=== PATIENT | male | born 1985 | race Caucasian/White ===

== ENCOUNTER 2017-12-16 16:02 | Emergency (ER) | payer MEDICAID ==
--- NOTE | 2017-12-16 16:26 | ER Document Report ---
HPI - HPI Patient complains to provider of: MRSA, streak up arm Onset: Last week Pain Level: 4 Context: 32 yo male dx with MRSA left proximal forearm folliculitis by cx by [facility] now has red streak up to his axilla which hurts. also has herpes break out on penis with inquinal lymph nodes. Associated Symptoms: Other - see above Exacerbated by: Denies Relieved by: Denies Similar symptoms previously: Yes Recently seen / treated by doctor: Yes - ROS ROS below otherwise negative: Yes Systems Reviewed and Negative: Yes All other systems reviewed and negative Past Medical History - General Information source: Patient - Social History Smoking Status: Never Smoker Frequency of alcohol use: None Drug Abuse: None Lives with: Family Family History: Reviewed & Not Pertinent - Medical History Medical History: Negative Surgical Hx: Negative Vertical Provider Document - CONSTITUTIONAL Agree With Documented VS: Yes Exam Limitations: No Limitations General Appearance: No Apparent Distress - HEENT HEENT: Normocephalic - NECK Neck: Supple - RESPIRATORY Respiratory: Breath Sounds Normal, No Respiratory Distress - CARDIOVASCULAR Cardiovascular: Regular Rate, Regular Rhythm - REPRODUCTIVE Male Genitalia: Abnormal Inspection - cursted hsv lesions mid left penis with inquinal nodes - MUSCULOSKELETAL/EXTREMETIES Musculoskeletal/Extremeties: MAEW - NEURO Level of Consciousness: Awake, Alert - DERM Integumentary: Rash - right proximal folliculitis lesions that are crusted, macular pink loymphangitis to axilla Course - Re-evaluation Re-evalutation: 12/16/[address] wen, give septra 2 bid - Vital Signs Vital signs: Temp Pulse Resp BP Pulse Ox 98.5 F 74 16 131/80 H 97 12/16/17 16:17 12/16/17 16:17 12/16/17 16:17 12/16/17 16:17 12/16/17 16:17 Discharge - Discharge Clinical Impression: Herpes simplex infection of penis, left proximal forearm folliculitis, MRSA ( methicillin resistant staph aureus) culture positive Condition: Good Disposition: HOME, SELF-CARE Instructions: Folliculitis ([facility]), Genital Herpes ([facility]), Lymphadenopathy ([facility]), Trimethoprim-Sulfa ([facility]) Additional Instructions: bactroban to each nostril bid for 5 days to eradicate the MRSA valtrex for genital herpes finish the keflex and bactrim use the antibacterial soap daily in shower bactroban to the forearm lesions , small amount 3 times per day for 3 days wound check in 48 hours to er if worse Prescriptions: Sulfamethoxazole/Trimethoprim [Sulfamethoxazole-Tmp Ds Tablet] 2 each PO BID # 28 tablet Valacyclovir HCl [Valtrex] 1,000 mg PO BID #20 tablet Forms: Return to Work
[2017-12-16] MEDS ORDERED: MUPIROCIN 2% OINTMENT 22 GM TP ONE (17:32)
[2017-12-16 18:23] VITALS: BP 119/77
== END 2017-12-16 18:24 | disposition home or self-care (01) ==
LOC: ER 16:02
DX: A60.01 Herpesviral infection of penis (principal); A49.02 Methicillin resistant Staphylococcus aureus infection, unspecified site; L73.9 Follicular disorder, unspecified; R59.9 Enlarged lymph nodes, unspecified
CPT/HCPCS: 99283; J3490

== ENCOUNTER 2018-03-24 11:34 | Emergency (ER) | payer MEDICAID ==
[2018-03-24 11:40] VITALS: BP 130/76
--- NOTE | 2018-03-24 12:05 | ER Document Report ---
ED General - General Chief Complaint: Nausea/Vomiting/Diarrhea Stated Complaint: RASH ON LEFT ARM, FEET SWELLING Time Seen by Provider: 03/24/18 12:00 Mode of Arrival: Ambulatory Information source: Patient TRAVEL OUTSIDE OF THE [place] IN LAST 30 DAYS: No - HPI Patient complains to provider of: insect bites; med refill Onset: Just prior to arrival - pt with insect bites to L arm just [employer] -- with some swelling. Also wants synthroid refill - Related Data Allergies/Adverse Reactions: No Known Allergies Allergy (Verified 03/24/18 12:07) Past Medical History - Social History Smoking Status: Never Smoker Cigarette use (# per day): No Chew tobacco use (# tins/day): No Smoking Education Provided: No Family History: Reviewed & Not Pertinent Renal/ Medical History: Denies: Hx Peritoneal Dialysis Review of Systems - Review of Systems Constitutional: No symptoms reported EENT: No symptoms reported Cardiovascular: No symptoms reported Respiratory: No symptoms reported Gastrointestinal: No symptoms reported Male Genitourinary: No symptoms reported -: Yes All other systems reviewed and negative Physical Exam - Vital signs Vitals: Temp Pulse Resp BP Pulse Ox 98.0 F 72 18 130/76 H 96 03/24/18 11:39 03/24/18 11:39 03/24/18 11:39 03/24/18 11:39 03/24/18 11:39 - General General appearance: Appears well In distress: None - HEENT Pharynx: Normal Neck: Normal - Respiratory Respiratory status: No respiratory distress Breath sounds: Normal - Cardiovascular Rhythm: Regular Heart sounds: Normal auscultation - Abdominal Inspection: Normal Tenderness: Nontender - Extremities Elbow: Nontender - there are scattered erytemetous papules on L elbow ; FROM; N/ V intact Course - Re-evaluation Re-evalutation: 03/24/18 20:03 pt feels better at d/c - Vital Signs Vital signs: Temp Pulse Resp BP Pulse Ox 98.0 F 72 18 130/76 H 96 03/24/18 11:39 03/24/18 11:39 03/24/18 11:39 03/24/18 11:39 03/24/18 11:39 Discharge - Discharge Clinical Impression: Medication refill Insect bites Qualifiers: Encounter type: initial encounter Qualified Code(s): W57.XXXA - Bitten or stung by nonvenomous insect and other nonvenomous arthropods, initial encounter Condition: Stable Disposition: HOME, SELF-CARE Instructions: Acetaminophen Additional Instructions: rest, take meds as prescribed, return if worse Prescriptions: Levothyroxine Sodium [Synthroid 0.112 mg Tablet] 0.112 mg PO DAILY #30 tablet Methylprednisolone [Medrol Dosepack (4 mg/Tab) 21 Tab/Dosepak] 21 tab PO ASDIR PRN #1 dspk PRN Reason: Referrals: OSCAR LORENZO MD [ACTIVE STAFF] - Follow up as needed
== END 2018-03-24 12:07 | disposition home or self-care (01) ==
LOC: ER 11:34
DX: S40.862A Insect bite (nonvenomous) of left upper arm, initial encounter (principal); W57.XXXA Bitten or stung by nonvenomous insect and other nonvenomous arthropods, initial encounter; Z76.0 Encounter for issue of repeat prescription
CPT/HCPCS: 99281

== ENCOUNTER 2018-06-16 15:18 | Emergency (ER) | payer MEDICAID ==
--- NOTE | 2018-06-16 15:42 | ER Document Report ---
ED Medical Screen (RME) - General Chief Complaint: Wound Infection Stated Complaint: KNEE PAIN Time Seen by Provider: 06/16/18 15:39 Mode of Arrival: Ambulatory Information source: Patient TRAVEL OUTSIDE OF THE [place] 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 denies fever - Related Data Allergies/Adverse Reactions: No Known Allergies Allergy (Verified 03/24/18 12:07) Past Medical History Pulmonary Medical History: Reports: Hx Tuberculosis Renal/ Medical History: Denies: Hx Peritoneal Dialysis Physical Exam - Vital signs Vitals: Temp Pulse BP Pulse Ox 98.5 F 75 128/73 H 93 06/16/18 15:24 06/16/18 15:24 06/16/18 15:24 06/16/18 15:24 Course - Vital Signs Vital signs: Temp Pulse Resp BP Pulse Ox 98.5 F 75 128/73 H 93 06/16/18 15:24 06/16/18 15:24 06/16/18 15:24 06/16/18 15:24
[2018-06-16 16:16] LABS: ABSOLUTE EOSINOPHILS # (AUTO) 0.4 10^3/uL (0.0-0.6); ABSOLUTE LYMPHOCYTES (AUTO) 2.7 10^3/uL (0.5-4.7); ABSOLUTE MONOCYTES (AUTO) 0.8 10^3/uL (0.1-1.4); ABSOLUTE NEUT (AUTO) 5.8 10^3/uL (1.7-8.2); BASOPHILS % (AUTO) 0.4 % (0-2); EOSINOPHILS % (AUTO) 4.5 % (0-6); HEMATOCRIT 39.4 % (37.9-51.0); HEMOGLOBIN 13.5 g/dL (13.5-17.0); LYMPHOCYTES % (AUTO) 27.7 % (13-45); MEAN CORPUSCULAR HEMOGLOBIN 30.4 pg (27.0-33.4); MEAN CORPUSCULAR HGB CONC 34.3 g/dL (32.0-36.0); MEAN CORPUSCULAR VOLUME 89 fl (80-97); PLATELET COUNT 295 10^3/uL (150-450); RED BLOOD COUNT 4.44 10^6/uL (4.35-5.55); RED CELL DISTRIBUTION WIDTH 12.7 % (11.5-14.0); SEGMENTED NEUTROPHILS % (AUTO) 59.4 % (42-78); TOTAL CELLS COUNTED % (AUTO) 100 %; WHITE BLOOD COUNT 9.8 10^3/uL (4.0-10.5)
[2018-06-16 16:33] LABS: ALANINE AMINOTRANSFERASE 15 U/L (21-72); ALBUMIN 4.6 g/dL (3.5-5.0); ALKALINE PHOSPHATASE 71 U/L (38-126); ANION GAP 11 (5-19); ASPARTATE AMINO TRANSFERASE 20 U/L (17-59); BILIRUBIN,DIRECT 0.3 mg/dL (0.0-0.4); BILIRUBIN,TOTAL 0.5 mg/dL (0.2-1.3); BLOOD UREA NITROGEN 12 mg/dL (7-20); CALCIUM 9.5 mg/dL (8.4-10.2); CARBON DIOXIDE 32 mmol/L (22-30); CHLORIDE 100 mmol/L (98-107); GLUCOSE 87 mg/dL (75-110); POTASSIUM 4.6 mmol/L (3.6-5.0); SODIUM 143.2 mmol/L (137-145)
--- NOTE | 2018-06-16 17:27 | RADIOLOGY REPORT (SQ) ---
EXAM DESCRIPTION: KNEE LEFT 3 VIEWS COMPLETED DATE/TIME: 06/16/2018 5:05 pm REASON FOR STUDY: L knee pain COMPARISON: None. EXAM PARAMETERS: NUMBER OF VIEWS: Three views. TECHNIQUE: AP, lateral and oblique radiographic images acquired of the left knee. LIMITATIONS: None. FINDINGS: MINERALIZATION: Normal. BONES: No acute fracture or dislocation. No worrisome bone lesions. JOINTS: No effusion. SOFT TISSUES: Anterior soft tissue swelling. No radiopaque foreign body. OTHER: No other significant finding. IMPRESSION: NO FRACTURE. TECHNICAL DOCUMENTATION: JOB ID: [id number] [id number] 2010 [employer]- All Rights Reserved Reading location - IP/workstation name: [email or web address]
[2018-06-16] MEDS ORDERED: CLINDAMYCIN 600 MG/D5W RTU 600 MG/50 ML RTUPB IV ONE (17:47)
[2018-06-16] MEDS ORDERED: CLINDAMYCIN HCL 150 MG CAPSULE PO ONE (17:47)
--- NOTE | 2018-06-16 17:53 | ER Document Report ---
ED General - General Chief Complaint: Wound Infection Stated Complaint: KNEE PAIN Time Seen by Provider: 06/16/18 15:39 Mode of Arrival: Ambulatory TRAVEL OUTSIDE OF THE [place] IN LAST 30 DAYS: No - HPI Patient complains to provider of: Wound infection Notes: Patient coming in for wound infection of the left knee. States ongoing for 1 week. Patient states has a history of MRSA a history of small little pustules forming for which she has been given Bactroban in the past patient states he has been applying Bactroban twice a day to the wound however seems to be progressing. Patient denies any fevers chills nausea vomiting diarrhea. Patient denies any recent antibiotics in the last 2 weeks. Patient denies any specific injury however does work inspecting roofs. Patient states able to ambulate however initial motion is painful denies any other past medical history. - Related Data Allergies/Adverse Reactions: No Known Allergies Allergy (Verified 03/24/18 12:07) Past Medical History - General Information source: Patient - Social History Smoking Status: Former Smoker Chew tobacco use (# tins/day): Yes Frequency of alcohol use: None Drug Abuse: None Family History: Reviewed & Not Pertinent Patient has suicidal ideation: No Patient has homicidal ideation: No Pulmonary Medical History: Reports: Hx Tuberculosis Renal/ Medical History: Denies: Hx Peritoneal Dialysis Review of Systems - Review of Systems Constitutional: No symptoms reported EENT: No symptoms reported Cardiovascular: No symptoms reported Respiratory: No symptoms reported Gastrointestinal: No symptoms reported Genitourinary: No symptoms reported Male Genitourinary: No symptoms reported Musculoskeletal: No symptoms reported Skin: Other - Left wound infection Hematologic/Lymphatic: No symptoms reported Neurological/Psychological: No symptoms reported -: Yes All other systems reviewed and negative Physical Exam - Vital signs Vitals: Temp Pulse BP Pulse Ox 98.5 F 75 128/73 H 93 06/16/18 15:24 06/16/18 15:24 06/16/18 15:24 06/16/18 15:24 Interpretation: Normal - General General appearance: Appears well, Alert - HEENT Head: Normocephalic, Atraumatic Eyes: Normal Pupils: PERRL - Respiratory Respiratory status: No respiratory distress Chest status: Nontender Breath sounds: Normal Chest palpation: Normal - Cardiovascular Rhythm: Regular Heart sounds: Normal auscultation Murmur: No - Abdominal Inspection: Normal Distension: No distension Bowel sounds: Normal Tenderness: Nontender Organomegaly: No organomegaly - Back Back: Normal, Nontender - Extremities General upper extremity: Normal inspection, Nontender, Normal color, Normal ROM , Normal temperature General lower extremity: Tender, Normal color, Normal ROM, Normal temperature, Normal weight bearing, Other - Right knee unaffected left knee has 2 small pustules in the prepatellar area with a scant amount of drainage there is no fluctuance no expressible drainage to palpation or pressure. Erythema surrounding the proximal tibia to the area of the lateral and medial collateral ligaments there is no pain to pressure of the knee range of motion is intact. No: Normal inspection - Neurological Neuro grossly intact: Yes Cognition: Normal Orientation: AAOx4 [place] Coma Scale Eye Opening: Spontaneous [place] Coma Scale Verbal: Oriented [place] Coma Scale Motor: Obeys Commands Angelina Coma Scale Total: 15 Speech: Normal Motor strength normal: LUE, RUE, LLE, RLE Sensory: Normal - Psychological Associated symptoms: Normal affect, Normal mood - Skin Skin Temperature: Warm Skin Moisture: Dry Skin Color: Normal Course - Re-evaluation Re-evalutation: 06/16/18 23:04 No fever with range of motion intact no signs of a joint infection at this time. We will give the patient clindamycin wound cultures have been performed in the triage area. Patient states understanding of wound care and need for return to the ER. Patient will be discharged after antibiotics - Vital Signs Vital signs: Temp Pulse Resp BP Pulse Ox 98.4 F 76 16 114/64 98 06/16/18 19:54 06/16/18 19:54 06/16/18 19:54 06/16/18 19:54 06/16/18 19:54 - Laboratory Result Diagrams: 06/16/18 15:53 06/16/18 15:53 Laboratory results interpreted by me: 06/16/18 15:53 Carbon Dioxide 32 H ALT 15 L Discharge - Discharge Clinical Impression: Cellulitis Qualifiers: Site of cellulitis: extremity Site of cellulitis of extremity: lower extremity Laterality: left Qualified Code(s): L03.116 - Cellulitis of left lower limb Condition: Good Disposition: HOME, SELF-CARE Instructions: Antibiotic Ointment Protection ([facility]), Cellulitis ([facility]), Clindamycin ([facility]) Additional Instructions: Please continue to apply the Bactroban ointment (mupirocin ointment) to the wound approximately 3 times a day. Please take the clindamycin as prescribed for the next 10 days. Return to ER if you feel like you are getting worse. Follow-up with your primary care physician. The hair that we see within your right ear canal will remove itself please do not attempt to remove the hair with your Q-tips or any other foreign objects. Prescriptions: Ibuprofen [Motrin 600 mg Tablet] 600 mg PO Q8HP PRN #21 tablet PRN Reason: Clindamycin HCl [Cleocin 300 mg Capsule] 300 mg PO Q6 10 Days #40 cap Forms: Return to Work
[2018-06-16 19:55] VITALS: BP 114/64
== END 2018-06-16 19:55 | disposition home or self-care (01) ==
LOC: ER 15:18
DX: L03.116 Cellulitis of left lower limb (principal); T16.1XXA Foreign body in right ear, initial encounter; X58.XXXA Exposure to other specified factors, initial encounter; Z86.14 Personal history of Methicillin resistant Staphylococcus aureus infection; Z87.891 Personal history of nicotine dependence
CPT/HCPCS: 99283; 96365; 36415; 87040; 87070; 87205; 85025; 87075; 87077; 80053; 87186; 73562; S0077; J3490

== ENCOUNTER 2018-10-13 14:36 | Emergency (ER) | payer MEDICAID ==
--- NOTE | 2018-10-13 14:51 | ER Document Report ---
ED Medical Screen (RME) - General Chief Complaint: Dizziness Stated Complaint: COUGH Time Seen by Provider: 10/13/18 14:49 Mode of Arrival: Ambulatory Information source: Patient TRAVEL OUTSIDE OF THE [place] IN LAST 30 DAYS: No - HPI Patient complains to provider of: dizziness , cough Onset: Yesterday - pt states blood coming up from throat, also dizziness and cough - Related Data Allergies/Adverse Reactions: No Known Allergies Allergy (Verified 10/13/18 14:39) Past Medical History - Social History Chew tobacco use (# tins/day): Yes Frequency of alcohol use: None Drug Abuse: None Pulmonary Medical History: Reports: Hx Tuberculosis Renal/ Medical History: Denies: Hx Peritoneal Dialysis Psychiatric Medical History: Reports: Hx Depression Physical Exam - Vital signs Vitals: Temp Pulse Resp BP Pulse Ox 98.1 F 69 20 134/74 H 96 10/13/18 14:39 10/13/18 14:39 10/13/18 14:39 10/13/18 14:39 10/13/18 14:39 Course - Vital Signs Vital signs: Temp Pulse Resp BP Pulse Ox 98.1 F 69 20 134/74 H 96 10/13/18 14:39 10/13/18 14:39 10/13/18 14:39 10/13/18 14:39 10/13/18 14:39
--- NOTE | 2018-10-13 15:08 | RADIOLOGY REPORT (SQ) ---
EXAM DESCRIPTION: CHEST 2 VIEWS COMPLETED DATE/TIME: 10/13/2018 3:00 pm REASON FOR STUDY: cough COMPARISON: None. EXAM PARAMETERS: NUMBER OF VIEWS: two views TECHNIQUE: Digital Frontal and Lateral radiographic views of the chest acquired. RADIATION DOSE: NA LIMITATIONS: none FINDINGS: LUNGS AND PLEURA: No opacities, masses or pneumothorax. No pleural effusion. MEDIASTINUM AND HILAR STRUCTURES: No masses or contour abnormalities. HEART AND VASCULAR STRUCTURES: Heart normal size. No evidence for failure. BONES: No acute findings. HARDWARE: None in the chest. OTHER: No other significant finding. IMPRESSION: NO ACUTE RADIOGRAPHIC FINDING IN THE CHEST. TECHNICAL DOCUMENTATION: JOB ID: [id number] [employer]- All Rights Reserved Reading location - IP/workstation name: [email or web address]
[2018-10-13 15:31] LABS: ABSOLUTE LYMPHOCYTES (AUTO) 2.3 10^3/uL (0.5-4.7); ABSOLUTE MONOCYTES (AUTO) 0.4 10^3/uL (0.1-1.4); ABSOLUTE NEUT (AUTO) 2.5 10^3/uL (1.7-8.2); BASOPHILS % (AUTO) 0.2 % (0-2); EOSINOPHILS % (AUTO) 0.1 % (0-6); HEMATOCRIT 39.1 % (37.9-51.0); HEMOGLOBIN 13.5 g/dL (13.5-17.0); LYMPHOCYTES % (AUTO) 44.2 % (13-45); MEAN CORPUSCULAR HEMOGLOBIN 30.1 pg (27.0-33.4); MEAN CORPUSCULAR HGB CONC 34.6 g/dL (32.0-36.0); MEAN CORPUSCULAR VOLUME 87 fl (80-97); MONOCYTES % (AUTO) 7.3 % (3-13); PLATELET COUNT 240 10^3/uL (150-450); RED CELL DISTRIBUTION WIDTH 12.9 % (11.5-14.0); SEGMENTED NEUTROPHILS % (AUTO) 48.2 % (42-78); TOTAL CELLS COUNTED % (AUTO) 100 %; WHITE BLOOD COUNT 5.2 10^3/uL (4.0-10.5)
[2018-10-13 15:48] LABS: ALANINE AMINOTRANSFERASE 20 U/L (21-72); ALBUMIN 4.7 g/dL (3.5-5.0); ALKALINE PHOSPHATASE 67 U/L (38-126); ANION GAP 9 (5-19); ASPARTATE AMINO TRANSFERASE 19 U/L (17-59); BILIRUBIN,DIRECT 0.2 mg/dL (0.0-0.4); BILIRUBIN,TOTAL 0.3 mg/dL (0.2-1.3); BLOOD UREA NITROGEN 11 mg/dL (7-20); CALCIUM 9.4 mg/dL (8.4-10.2); CARBON DIOXIDE 32 mmol/L (22-30); CHLORIDE 101 mmol/L (98-107); GLUCOSE 86 mg/dL (75-110); POTASSIUM 4.6 mmol/L (3.6-5.0); SODIUM 141.9 mmol/L (137-145); TOTAL PROTEIN 7.9 g/dL (6.3-8.2)
[2018-10-13] MEDS ORDERED: METOCLOPRAMIDE HCL ORAL SOLN 10 MG/10 ML UDCUP PO ONE (16:10)
[2018-10-13] MEDS ORDERED: MAG HYDROX/AL HYDROX/SIMETH SUSP 30 ML UDCUP PO ONE (16:10)
[2018-10-13] MEDS ORDERED: LIDOCAINE 2% VISCOUS SOLN 20 ML UDCUP PO ONE (16:10)
--- NOTE | 2018-10-13 16:15 | ER Document Report ---
ED General - General Chief Complaint: Dizziness Stated Complaint: COUGH Time Seen by Provider: 10/13/18 14:49 Primary Care Provider: MERT DAN MD [Primary Care Provider] - Follow up as needed Mode of Arrival: Ambulatory Information source: Patient TRAVEL OUTSIDE OF THE [place] IN LAST 30 DAYS: No - HPI Patient complains to provider of: Blood coming up in sputum Onset: Just prior to arrival Onset/Duration: Sudden Quality of pain: No pain Associated symptoms: None Exacerbated by: Denies Relieved by: Denies Similar symptoms previously: No Recently seen / treated by doctor: No Notes: Patient is a healthy 33-year-old male coming in today with chief complaint fullness in his throat and is spitting up blood clots in his sputum. He relates a history today that he was eating popcorn and he got a tunnel in his throat and he had the kind of cough to get it out. Around 1:00 this afternoon started to feel fullness in his throat and was started to notice the blood. Patient has been smoking and chewing tobacco for a number of years and is concerned that if he suddenly developed oropharyngeal cancer. He was completely asymptomatic yesterday. He has had no unintended weight loss. No dysphagia. - Related Data Allergies/Adverse Reactions: No Known Allergies Allergy (Verified 10/13/18 14:39) Past Medical History - General Information source: Patient - Social History Smoking Status: Current Every Day Smoker Chew tobacco use (# tins/day): Yes Frequency of alcohol use: None Drug Abuse: None Family History: Reviewed & Not Pertinent Patient has suicidal ideation: No Patient has homicidal ideation: No Pulmonary Medical History: Reports: Hx Tuberculosis Renal/ Medical History: Denies: Hx Peritoneal Dialysis Psychiatric Medical History: Reports: Hx Depression Review of Systems - Review of Systems Notes: Constitutional: No fevers. No chills. EENT: Throat fullness anteriorly Cardiovascular: No chest pain. No palpitations. Respiratory: No cough. No shortness of breath. No respiratory distress. Gastrointestinal: No abdominal pain. No nausea, vomiting, or diarrhea. Blood in phlegm Genitourinary: Atraumatic. No lesions. No pain. No discharge. Musculoskeletal: Atraumatic. No swelling. No deformities. Skin: No rash or lesions. Lymphatic: No swollen lymph nodes. Neurologic: No headache. No syncope. Psychiatric: No suicidal or homicidal ideation. Physical Exam - Vital signs Vitals: Temp Pulse Resp BP Pulse Ox 98.1 F 69 20 134/74 H 96 10/13/18 14:39 10/13/18 14:39 10/13/18 14:39 10/13/18 14:39 10/13/18 14:39 - Notes Notes: General: Well-developed, well-nourished. In no acute distress. Non-toxic appearing. Cardiac: Well-perfused. Regular rate and rhythm. No murmurs, rubs, or gallops. Pulmonary: No respiratory distress. No cyanosis. Bilateral lung fiels are clear to auscultation. Abdominal: Non-distended. Non-rigid. Bowels sounds are present in all four quadrants. No guarding or rebound. HEENT: Head is atraumatic. Conjunctivae not reddened. No tearing. PERRL. EOMI. Orbits atraumatic. No periorbital swelling or erythema. Oropharynx is without erythema, swelling, or exudates. Neck: Supple. No adenopathy. No meningismus. Dermatologic: Warm with good turgor. No rash. Atraumatic. Chest: Atraumatic. No chest wall tenderness to palpation. Musculoskeletal: Moves all extremities well. No range of motion deficits. no muscular or joint tenderness. No paraspinal muscle tenderness. no midline spinal tenderness or step-off. Genitourinary: Examination deferred Neurologic: No gross neurologic deficits. Psychiatric: Normal mood. Course - Re-evaluation Re-evalutation: 10/13/18 16:15 Patient's labs are all normal on find him of this. It is very unlikely that the patient went from being completely asymptomatic to symptomatic overnight. I did tell him definitively that ruling out oropharyngeal cancer would require a scope. He knows that when I can be doing that today. He is educated about the dangers of tobacco abuse. I will give him a GI cocktail. I suspect patient probably sustained a small abrasion to his esophagus when he had the issues swallowing the popcorn. We will do a soft tissue neck x-ray which will probably be negative. If the patient is still symptomatic in the next couple of days he is instructed to follow-up with his primary care physician to proceed with further investigation. 10/13/18 17:30 X-ray of the soft tissues of the neck was negative. I really think this patient is probably got a little abrasion in the esophagus from some popcorn that got stuck in his throat earlier today. He does have a doctor to follow-up with in the event that this persists. We will encourage him to proceed with a soft diet the next day or 2 to see how he does. - Vital Signs Vital signs: Temp Pulse Resp BP Pulse Ox 98.1 F 69 20 134/74 H 96 10/13/18 14:39 10/13/18 14:39 10/13/18 14:39 10/13/18 14:39 10/13/18 14:39 - Laboratory Result Diagrams: 10/13/18 15:11 10/13/18 15:11 Laboratory results interpreted by me: 10/13/18 15:11 Carbon Dioxide 32 H ALT 20 L Discharge - Discharge Clinical Impression: Abrasion of esophagus Qualifiers: Encounter type: initial encounter Qualified Code(s): S27.818A - Other injury of esophagus (thoracic part), initial encounter Condition: Good Disposition: HOME, SELF-CARE Instructions: Esophageal Spasm ([facility]), Abrasions ([facility]) Additional Instructions: Soft diet is recommended for the next 24-48 hours to see how you do. The bleeding persists you need to follow-up with your primary care doctor for further advice or return to the ED. In the event that the bleeding persists, he will need to have a scope down your throat to see where it is coming from. If the bleeding gets significantly worse and you need to be seen, please return to the ED for recheck. Referrals: MERT DAN MD [Primary Care Provider] - Follow up as needed DODIE MEDINA MD [ACTIVE STAFF] - Follow up in 1 week
--- NOTE | 2018-10-13 16:48 | RADIOLOGY REPORT (SQ) ---
EXAM DESCRIPTION: SOFT TISSUE NECK COMPLETED DATE/TIME: 10/13/2018 4:20 pm REASON FOR STUDY: fullness neck and spitting up blood COMPARISON: None. NUMBER OF VIEWS: Two views. TECHNIQUE: AP and lateral radiographic image of the soft tissues of the neck. LIMITATIONS: None. FINDINGS: EPIGLOTTIS: Normal. Contour normal. Aryepiglottic folds normal. PREVERTEBRAL SOFT TISSUES: Normal. No soft tissue swelling. SUBGLOTTIC AREA: Normal. No narrowing. RETROPHARYNGEAL SPACE: Normal. No soft tissue masses. BONES: No significant findings. LUNG APICES: Normal. OTHER: No radiopaque foreign body. No other significant finding. IMPRESSION: NEGATIVE STUDY OF THE SOFT TISSUES OF THE NECK. TECHNICAL DOCUMENTATION: JOB ID: [id number] [employer]- All Rights Reserved Reading location - IP/workstation name: [email or web address]
[2018-10-13 17:59] VITALS: BP 128/72
== END 2018-10-13 17:45 | disposition home or self-care (01) ==
LOC: ER 14:36
DX: S27.818A Other injury of esophagus (thoracic part), initial encounter (principal); X58.XXXA Exposure to other specified factors, initial encounter; F17.200 Nicotine dependence, unspecified, uncomplicated
CPT/HCPCS: 99283; 36415; 85025; 80053; 71046; 70360; J3490 ×3